=== PATIENT | female | born 1970 ===

== ENCOUNTER 2017-03-26 15:49 | Emergency (ER) | payer OTHER ==
[~2017-03-26] VITALS: Ht 165.1 cm; Wt 77.0 kg
[2017-03-26 15:50] VITALS: BP 123/83; PULSE 180; RESP 16; TEMP 97.9; O2SAT 100
[2017-03-26] MEDS ORDERED: DILTIAZEM HCL 25 MG/5 ML VIAL IV PUSH ONE (16:00)
[2017-03-26] MEDS ORDERED: SODIUM CHLORIDE 0.9% FLUSH 10 ML FLUSH IVF PRN (16:00)
[2017-03-26 16:10] LABS: AUTOMATED NEUTROPHIL # 5.6 TH/MM3 (1.8-7.7); BASOPHIL # 0.1 TH/MM3 (0-0.2); BASOPHIL % 0.7 % (0.0-2.0); EOSINOPHIL # 0.1 TH/MM3 (0-0.4); EOSINOPHIL % 1.6 % (0.0-4.0); HEMATOCRIT 44.7 % (35.0-46.0); HEMO FLAGS DIFF FINAL; LYMPH % 26.3 % (9.0-44.0); LYMPHOCYTE # 2.2 TH/MM3 (1.0-4.8); MEAN CELL VOLUME 85.5 FL (80.0-100.0); MEAN CORPUSCULAR HEMOGLOBIN 28.5 PG (27.0-34.0); MEAN CORPUSCULAR HGB CONC 33.3 % (32.0-36.0); NEUT % 66.4 % (16.0-70.0); PLATELET COUNT 357 TH/MM3 (150-450); RED BLOOD COUNT 5.23 MIL/MM3 (4.00-5.30); WHITE BLOOD COUNT 8.4 TH/MM3 (4.0-11.0)
--- NOTE | 2017-03-26 16:12 | PD ---
HPI . Rapid heart rate Chief Complaint: Cardiac Complaint Time Seen by Provider: 15:55 Travel History International Travel<30 days: No Contact w/Intl Traveler<30days: No History of Present Illness HPI Patient presents with a five-hour history of a rapid heartbeat. It is associated with some mild dizziness and chest discomfort. Patient denies any previous similar history. Patient is unaware of any precipitating event. PFSH Social History Tobacco Use: No Allergies-Medications (Allergen,Severity, Reaction): Coded Allergies: No Known Allergies (Unverified , 03/26/17) Reported Meds & Prescriptions Reported Meds & Active Scripts Active No Active Prescriptions or Reported Medications Review of Systems Except as stated in HPI: all other systems reviewed are Neg General / Constitutional: No: Fever, Chills HENT: Positive: Lightheadedness Cardiovascular: Positive: Chest Pain or Discomfort, Tachycardia Respiratory: No: Shortness of Breath Physical Exam Narrative GENERAL: Healthy-appearing woman in no acute distress. SKIN: Warm and dry. HEAD: Atraumatic. Normocephalic. EYES: Pupils equal and round. Extraocular movements are intact. ENT: No nasal bleeding or discharge. Mucous membranes pink and moist. NECK: Trachea midline. Neck is supple. CARDIOVASCULAR: Initial heart rate was 180 and regular. Heart sounds following treatment is normal. Normal sinus rhythm. RESPIRATORY: No accessory muscle use. Lungs are clear with good air movement throughout. GASTROINTESTINAL: Abdomen soft, non-tender, nondistended. MUSCULOSKELETAL: No obvious deformities. No edema. NEUROLOGICAL: Awake and alert. No obvious cranial nerve deficits. Motor grossly within normal limits. Normal speech. PSYCHIATRIC: Appropriate mood and affect; insight and judgment normal. Data Data Last Documented VS Vital Signs Date Time Temp Pulse Resp B/P Pulse Ox O2 Delivery O2 Flow Rate FiO2 03/26/17 16:18 16 100 Room Air 03/26/17 16:18 123/83 03/26/17 15:55 180 03/26/17 15:50 97.9 Orders Ecg Monitoring (03/26/17 15:55) Blood Pressure (03/26/17 15:55) Iv Access Insert/Monitor (03/26/17 15:55) Oximetry (03/26/17 15:55) Vital Signs (03/26/17 15:55) Diltiazem Inj (Cardizem Inj) (03/26/17 16:00) Sodium Chloride 0.9% Flush (Ns Flush) (03/26/17 16:00) Basic Metabolic Panel (Bmp) (03/26/17 15:56) Ckmb (Isoenzyme) Profile (03/26/17 15:56) Complete Blood Count With Diff (03/26/17 15:56) Magnesium (Mg) (03/26/17 15:56) Prothrombin Time / Inr (Pt) (03/26/17 15:56) Act Partial Throm Time (Ptt) (03/26/17 15:56) Troponin I (03/26/17 15:56) Chest, Single Ap (03/26/17 15:56) Thyroid Stimulating Hormone (03/26/17 15:56) Labs Laboratory Tests Test 03/26/17 15:58 White Blood Count 8.4 TH/MM3 Red Blood Count 5.23 MIL/MM3 Hemoglobin 14.9 GM/DL Hematocrit 44.7 % Mean Corpuscular Volume 85.5 FL Mean Corpuscular Hemoglobin 28.5 PG Mean Corpuscular Hemoglobin 33.3 % Concent Red Cell Distribution Width 12.0 % Platelet Count 357 TH/MM3 Mean Platelet Volume 6.8 FL Neutrophils (%) (Auto) 66.4 % Lymphocytes (%) (Auto) 26.3 % Monocytes (%) (Auto) 5.0 % Eosinophils (%) (Auto) 1.6 % Basophils (%) (Auto) 0.7 % Neutrophils # (Auto) 5.6 TH/MM3 Lymphocytes # (Auto) 2.2 TH/MM3 Monocytes # (Auto) 0.4 TH/MM3 Eosinophils # (Auto) 0.1 TH/MM3 Basophils # (Auto) 0.1 TH/MM3 CBC Comment DIFF FINAL Differential Comment Prothrombin Time 10.0 SEC Prothromb Time International 0.9 RATIO Ratio Activated Partial 30.7 SEC Thromboplast Time Sodium Level 139 MEQ/L Potassium Level 3.6 MEQ/L Chloride Level 102 MEQ/L Carbon Dioxide Level 27.1 MEQ/L Anion Gap 10 MEQ/L Blood Urea Nitrogen 15 MG/DL Creatinine 0.72 MG/DL Estimat Glomerular Filtration 87 ML/MIN Rate Random Glucose 106 MG/DL Calcium Level 9.1 MG/DL Magnesium Level 2.1 MG/DL Total Creatine Kinase 82 U/L Troponin I 0.04 NG/ML Thyroid Stimulating Hormone 0.912 uIU/ML 3rd Gen [facility] Medical Decision Making Medical Screen Exam Complete: Yes Emergency Medical Condition: Yes Interpretation(s) Initial EKG shows PSVT with a rate of 174. Repeat EKG shows a sinus rhythm with a rate of 102. No ST segment elevation or depression. Differential Diagnosis Differential diagnosis of palpitations includes but is not limited to anxiety, SVT, aVF with RVR, VT, sinus tachycardia, PVCs Narrative Course Patient presents with tachycardia. She was in PSVT on the monitor. She was treated with Cardizem with excellent results. CBC & BMP Diagram 03/26/17 15:58 Cardiac enzymes are negative. TSH is normal. Chest x-ray to my interpretation is negative. The patient has remained in sinus rhythm since being treated with Cardizem. Critical Care Narrative Aggregate critical care time was 10 minutes. Time to perform other separately billable procedures was not included in the critical care time. My time did not include minutes spent treating any other patients simultaneously or on activities that did not directly contribute to the patient's treatment. The services I provided to this patient were to treat and/or prevent clinically significant deterioration due to tachycardia I provided critical care services requiring my management, as noted below: Chart data review, documentation time, medication orders and management, vital sign assessments/reviewing monitor data, ordering and reviewing lab tests, ordering and interpreting/reviewing x-rays and diagnostic studies, care of the patient and discussion of the patient with the admitting physicians Diagnosis Primary Impression: PSVT (paroxysmal supraventricular tachycardia) Patient Instructions: General Instructions, Supraventricular Tachycardia (DC) Scripts No Active Prescriptions or Reported Meds Disposition: 01 DISCHARGE HOME Condition: Stable Verna Salazar MD March 26, 2017 16:12 Verna Salazar MD March 26, 2017 16:12
[2017-03-26 16:15] LABS: POTASSIUM 3.6 MEQ/L (3.5-5.1)
[2017-03-26 16:18] VITALS: BP 123/83; RESP 16; O2SAT 100
[2017-03-26 16:18] LABS: BICARBONATE 27.1 MEQ/L (21.0-32.0); MAGNESIUM 2.1 MG/DL (1.5-2.5)
[2017-03-26 16:21] LABS: APTT (PATIENT) 30.7 SEC (24.3-30.1); INTERNATIONAL NORMALIZED RATIO 0.9 RATIO
--- NOTE | 2017-03-26 16:55 | RADHPO ---
EXAM DATE/TIME: 03/26/2017 16:14 [facility] COMPARISON: No previous studies available for comparison. INDICATIONS : Chest pain. MEDICAL HISTORY : None. SURGICAL HISTORY : None. ENCOUNTER: Initial ACUITY: 1 day PAIN SCORE: 5/10 LOCATION: Bilateral chest FINDINGS: A single view of the chest demonstrates the lungs to be symmetrically aerated without evidence of mas s, infiltrate or effusion. The cardiomediastinal contours are unremarkable. Osseous structures are intact. CONCLUSION: 1. No acute cardiopulmonary disease. River Babin MD on March 26, 2017 at 16:53 Board Certified Radiologist. This report was verified electronically.
[2017-03-26 16:59] VITALS: BP 129/93; PULSE 88; RESP 16; O2SAT 98
--- NOTE | 2017-03-27 16:32 | EKG ---
Date Performed: 03/26/2017 Time Performed: 15:53:54 PTAGE: 46 years EKG: Atrial flutter with uncontrolled ventricular response with 2:1 A-V block. Possible septal i nfarct - age undetermined Inferior/lateral ST-T changes are nonspecific Abnormal ECG NO PREVIOUS TRACING DOCTOR: Nohemy Hicks Interpretating Date/Time 03/27/2017 16:30:56
--- NOTE | 2017-03-27 16:33 | EKG ---
Date Performed: 03/26/2017 Time Performed: 16:01:34 PTAGE: 46 years EKG: Sinus tachycardia. rSr'(V1) - probable normal variant Septal T wave changes are nonspecific Compared to previous tracing, the patient is no longer in atrial flutter Borderline ECG PREVIOUS TRACING : 03/26/2017 15.53 DOCTOR: Nohemy Hicks Interpretating Date/Time 03/27/2017 16:31:15
== END 2017-03-26 17:21 | disposition home or self-care (01) ==
LOC: PHED 15:49
DX: I47.1 Supraventricular tachycardia (principal); R42 Dizziness and giddiness; R07.89 Other chest pain; R94.31 Abnormal electrocardiogram [ECG] [EKG]
CPT/HCPCS: 71010; 80048; 82550; 83735; 84443; 84484; 85025; 85610; 85730; 93005; 96374